=== PATIENT | male | born 1945 | race Caucasian/White ===

== ENCOUNTER 2016-07-18 07:56 | Inpatient (IN) | payer MEDICARE, OTHER ==
[2016-07-18] VITALS (34 sets, daily range): BP systolic 107–147; BP diastolic 48–113; PULSE 51–67; RESP 12–23; Ht 172.7 cm; Wt 84.0 kg
[~2016-07-18] VITALS: Ht 172.7 cm; Wt 84.0 kg
[~2016-07-18 07:56] MED LIST: EZET10TA3 PO; FOR CHOLESTEROL; GEMF600T60 PO; RANI300T PO; TAMS0.4C2 PO; [UNRECOGNIZED DRUG - OTHER]; [UNRECOGNIZED DRUG - REMARK]
[2016-07-18] MEDS ORDERED: SOD CHLORIDE 0.9% 1,000 ML IV STA (08:21)
[2016-07-18 08:49] LABS: ADD SCAN DIFF NO
[2016-07-18 08:53] LABS: BASOPHIL # 0.1 10^3/ul (0.0-0.1); BASOPHILS % 0.6 % (0.0-2.0); EOSINOPHILS # 0.3 10^3/ul (0.0-0.5); EOSINOPHILS % 3.8 % (0.0-7.0); HEMATOCRIT 41.9 % (42.0-52.0); HEMOGLOBIN 14.3 g/dl (14.0-18.0); LYMPHOCYTES # 1.7 10^3/ul (0.8-2.9); LYMPHOCYTES % 18.6 % (15.0-51.0); MEAN CORPUSCULAR HEMOGLOBIN 31.8 pg (29.0-33.0); MEAN CORPUSCULAR HGB CONC 34.1 g/dl (32.0-37.0); MEAN CORPUSCULAR VOLUME 93.3 fl (82.0-101.0); MEAN PLATELET VOLUME 10.1 fl (7.4-10.4); MONOCYTE # 0.7 10^3/ul (0.3-0.9); MONOCYTES % 7.9 % (0.0-11.0); NEUTROPHIL # 6.2 10^3/ul (1.6-7.5); NEUTROPHILS % 68.7 % (39.0-77.0); PLATELET COUNT 174 10^3/UL (140-415); RED BLOOD COUNT 4.49 10^6/ul (4.70-6.10); RED CELL DISTRIBUTION WIDTH 12.8 % (11.5-14.5)
[2016-07-18] MEDS ORDERED: OMEP20CA16 PO (09:12)
[2016-07-18 09:24] LABS: ALBUMIN 4.1 g/dl (3.3-4.9); CHLORIDE 106 mmol/L (97-110); SODIUM 143 mmol/L (135-144)
[2016-07-18 09:26] LABS: BILIRUBIN,INDIRECT 0.3 mg/dl (0-1.1); BILIRUBIN,TOTAL 0.3 mg/dl (0.2-1.3); CREATININE 1.15 mg/dl (0.61-1.24)
[2016-07-18 09:27] LABS: ALANINE AMINOTRANSFERASE 31 IU/L (13-69); ALBUMIN/GLOBULIN RATIO 1.36; ALKALINE PHOSPHATASE 65 IU/L (42-121); ANION GAP 17 (8-16); ASPARTATE AMINO TRANSFERASE 18 IU/L (15-46); BLOOD UREA NITROGEN 22 mg/dl (7-20); CALCIUM 9.5 mg/dl (8.4-10.2); CARBON DIOXIDE 24 mmol/L (21-31); GLUCOSE 106 mg/dl (70-220); TOTAL PROTEIN 7.1 g/dl (6.1-8.1)
[2016-07-18] MEDS ORDERED: MEMA28CA PO (09:37)
--- NOTE | 2016-07-18 09:37 | RADRPT ---
PROCEDURE: CT Abdomen and Pelvis without contrast. CLINICAL INDICATION: Abdominal and back pain. TECHNIQUE: CT scan of the abdomen and pelvis without contrast was performed on a multidetector hig h-resolution CT scanner. The patient was scanned without intravenous contrast. Coronal and sagittal reformatted images were obtained from the axial source images. Images were reviewed on a high-resol [employer] PACS workstation. The total exam CTDI equals 15.0 mGy and the total exam DLP equals 1000.16 mG y-cm. One or more of the following dose reduction techniques were used: Automated exposure control. Adjustment of the mA and/or kV according to patient size. Use of iterative reconstruction technique. COMPARISON: None FINDINGS: CT abdomen: The lung bases are remarkable for mild bibasilar atelectasis. The heart size is normal, without per icardial thickening or effusion. Distal descending thoracic aorta measures up to 3.4 cm, upper limit s of normal range. The liver is normal in size and density without focal mass or intrahepatic bilia ry dilatation. The spleen is normal in size and homogeneous in density. The stomach is partially c ollapsed, but is grossly unremarkable. The pancreas as visualized is normal. The gallbladder is re markable for multiple calcified large gallstones. There is no evidence for biliary dilatation. The adrenal glands are symmetric and normal. The kidneys are symmetrically unremarkable as well. No re nal calculus or obstructive uropathy or mass lesion is seen. There are multiple small bilateral diego l cortical cysts measures up to 2 cm in the lower pole right kidney. There are several sub centimet er hypodensities in both kidneys, too small to further characterize. There are a few sub centimeter hyperdense round structures of both kidneys, likely representing a proteinaceous/hemorrha gic cyst. There is mild aneurysmal dilatation of the infrarenal abdominal aorta measures up to 3.4 cm. There is mild aneurysmal dilatation of the right common iliac artery measures up to 2.2 cm. Scattered aor toiliac atherosclerotic plaques are present. There is no retroperitoneal lymphadenopathy. The abi hepatis region is clear. The bowel and mesentery, as visualized, are equally unremarkable. There i s a fat-containing small periumbilical hernia. There is mild angel colonic diverticulosis more evident in the sigmoid without evidence of acute diverticulitis. CT pelvis: The small bowel loops situated within the pelvis are unremarkable. There is mild prostatomegaly wit h median lobe hypertrophy. The pelvic sidewalls and inguinal regions are clear. The sigmoid colon a nd rectum are remarkable for sigmoid diverticulosis. No mass, lymphadenopathy, or free fluid is see n. No acute inflammation is seen. The surrounding osseous structures are remarkable for degenerati ve spondylosis of the spine. No osteolytic or osteoblastic lesion is detected. IMPRESSION: 1. Mild aneurysmal dilatation of the infrarenal abdominal aorta measures up to 3.4 cm. No evidence of retroperitoneal hemorrhage to suggest rupture. 2. 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 3. Angel colonic diverticulosis more evident in the sigmoid without evidence of acute diverticulitis. 4. Cholelithiasis without evidence of acute cholecystitis. 5. Multiple bilateral renal cysts. A few sub centimeter hyperdense structures in bilateral kidneys , likely representing a hemorrhagic/proteinaceous cyst. Several sub centimeter bilateral renal hy podensities, too small to further characterize but statistically more likely additional cysts. 6. Normal appendix. 7. Mild prostatomegaly with median lobe hypertrophy. RPTAT: AAEE .Gypsy Miller MD, MD Date Time Electronically viewed and signed by .Gypsy Miller MD, on 07/18/2016 09:37 .O/
[2016-07-18 09:41] LABS: TROPONIN-I < 0.012 ng/ml (0.00-0.12)
[2016-07-18] MEDS ORDERED: SOD CHLORIDE 0.9% 100 ML ONE (10:13)
[2016-07-18] MEDS ORDERED: IOHEXOL 100 ML ONE ×2 (10:13→10:54)
--- NOTE | 2016-07-18 10:22 | ERA ---
ER Documentation Chief Complaint Date/Time DATE: 07/18/16 TIME: 10:15 Chief Complaint left shoulder pain,left flank pain, rad to the chest HPI 71-year-old man brought in by EMS from home for sudden onset severe left parathoracic back pain beginning this morning and waking him up from sleep. He denies previous episodes of this type of pain, the pain was sharp, severe, nonradiating and nonexertional. Patient denied chest pain or shortness of breath, no dysuria or hematuria, no vomiting or diarrhea. Patient was transported here by EMS and states upon ED arrival the pain resolved spontaneously. ROS All systems reviewed and are negative except as per history of present illness. Medications Home Meds Reported Medications Memantine* (Namenda* XR) 28 Mg Cap.spr.24, 28 MG PO DAILY, #30 TAB 07/18/16 Discontinued Reported Medications Omeprazole* (Omeprazole*) 20 Mg Capsule.dr, 20 MG PO DAILY, #30 07/18/16 Ezetimibe* (Zetia*) 10 Mg Tablet, 1 TAB PO DAILY, #30 03/21/15 Gemfibrozil* (Gemfibrozil*) 600 Mg Tablet, 1 TAB PO DAILY, #30 03/21/15 Ranitidine Hcl* (Ranitidine Hcl*) 300 Mg Tablet, 1 TAB PO DAILY, #30 03/21/15 Tamsulosin Hcl* (Tamsulosin Hcl*) 0.4 Mg Cap.er.24h, 1 CAP PO BID, #60 03/21/15 [For Urination] No Conflict Check 11/24/10 [For Stomach] No Conflict Check 11/24/10 [For Cholesterol] No Conflict Check 11/24/10 Allergies Allergies: Uncoded Allergies: ANTIBIOTICS THAT ENDS WITH CILLINS (Allergy, Mild, ITCHING AND SWELLING, 11/24/10) PMhx/Soc Tobacco smoker, cholelithiasis, gastritis, BPH, hypercholesterolemia History of Surgery: Yes (KNEE SX 20 YRS AGO) Anesthesia Reaction: No Hx Neurological Disorder: No Hx Respiratory Disorders: No Hx Cardiac Disorders: No Hx Psychiatric Problems: No Hx Miscellaneous Medical Probl: Yes (kidney stones, gallstones) Hx Substance Use: No Hx Tobacco Use: Yes Smoking Status: Never smoker FmHx No history of early coronary artery disease or sudden cardiac . Family History: No diabetes Physical Exam Vitals Vital Signs Date Time Temp Pulse Resp B/P Pulse Ox O2 Delivery O2 Flow Rate FiO2 07/18/16 11:29 56 18 137/76 99 Room Air 07/18/16 10:02 58 20 142/85 99 Room Air 07/18/16 08:11 98.1 59 20 144/93 99 Physical Exam GENERAL: Well-developed, well-nourished, well-hydrated, in no apparent distress , looks nontoxic in appearance HEENT: Moist mucous membranes, pink conjunctiva, no cervical spine tenderness or step-off deformities, no goiter, no jaundice or icterus, extraocular movements intact without pain. No submandibular induration, and no pharyngeal erythema NEURO: Alert and oriented 3, cranial nerves II through XII intact bilaterally, pupils equal round reactive to light, no focal deficits or facial asymmetry, sensation intact distally Strength 5/5 in upper and lower extremities bilaterally CARDIAC: Bradycardic and regular, no murmurs rubs or gallops LUNGS: Clear bilaterally no wheezing crackles or stridor ABDOMEN: Soft nontender, no guarding, no rigidity, no rebound, no psoas sign no obturator sign. Normoactive bowel sounds SKIN: Warm and dry to touch, no abrasions, contusions, or hematomas, no lacerations, no ecchymosis, no target lesions, and without ulcers EXTREMITIES: No clubbing cyanosis or edema, calves are bilaterally symmetrical, no Homans sign, no popliteal cord sign. Distal pulses equal and bilateral PSYCH: Normal affect without agitation or irritability Result Diagram: 07/18/16 0800 07/18/16 0800 Results 24 hrs Laboratory Tests Test 07/18/16 08:00 07/18/16 10:21 07/18/16 10:30 White Blood Count 9.010^3/ul Red Blood Count 4.4910^6/ul Hemoglobin 14.3g/dl Hematocrit 41.9% Mean Corpuscular Volume 93.3fl Mean Corpuscular Hemoglobin 31.8pg Mean Corpuscular Hemoglobin Concent 34.1g/dl Red Cell Distribution Width 12.8% Platelet Count 76136^3/UL Mean Platelet Volume 10.1fl Neutrophils % 68.7% Lymphocytes % 18.6% Monocytes % 7.9% Eosinophils % 3.8% Basophils % 0.6% Nucleated Red Blood Cells % 0.0/100WBC Neutrophils # 6.210^3/ul Lymphocytes # 1.710^3/ul Monocytes # 0.710^3/ul Eosinophils # 0.310^3/ul Basophils # 0.110^3/ul Nucleated Red Blood Cells # 0.010^3/ul Sodium Level 143mmol/L Potassium Level 4.0mmol/L Chloride Level 106mmol/L Carbon Dioxide Level 24mmol/L Anion Gap 17 Blood Urea Nitrogen 22mg/dl Creatinine 1.15mg/dl Glucose Level 106mg/dl Calcium Level 9.5mg/dl Total Bilirubin 0.3mg/dl Direct Bilirubin 0.00mg/dl Indirect Bilirubin 0.3mg/dl Aspartate Amino Transf (AST/SGOT) 18IU/L Alanine Aminotransferase (ALT/SGPT) 31IU/L Alkaline Phosphatase 65IU/L Troponin I < 0.012ng/ml Total Protein 7.1g/dl Albumin 4.1g/dl Globulin 3.00g/dl Albumin/Globulin Ratio 1.36 Lipase 84U/L Prothrombin Time 12.7Sec Prothrombin Time Ratio 1.0 INR International Normalized Ratio 0.95 Urine Color LT. YELLOW Urine Clarity CLEAR Urine pH 6.0 Urine Specific Kimball 1.025 Urine Ketones NEGATIVE Urine Nitrite NEGATIVE Urine Bilirubin NEGATIVE Urine Urobilinogen 0.2 E.U./dL Urine Leukocyte Esterase NEGATIVE Urine Hemoglobin NEGATIVE Urine Glucose NEGATIVE% Urine Total Protein NEGATIVE Current Medications Medications (Trade) Dose Ordered Sig/Louisa Route PRN Reason Start Time Stop Time Status Last Admin Dose Admin Sodium Chloride 1,000 ml @ 1,000 mls/hr Q1H STAT IV 07/18/16 08:21 07/18/16 09:20 DC 07/18/16 08:36 Sodium Chloride (NS) 1,000 ml @ 1,000 mls/hr Q1H ONCE IV 07/18/16 10:30 07/18/16 11:29 DC 07/18/16 11:27 IV Flush 10 ml 10 ml STK-MED ONCE .ROUTE 07/18/16 10:13 07/18/16 10:14 DC 07/18/16 11:11 Sodium Chloride 100 ml @ ud STK-MED ONCE .ROUTE 07/18/16 10:13 07/18/16 10:14 DC 07/18/16 11:11 Iohexol 100 ml @ ud STK-MED ONCE .ROUTE 07/18/16 10:13 07/18/16 10:14 DC 07/18/16 11:12 Iohexol (Omnipaque) 100 ml @ ud STK-MED ONCE .ROUTE 07/18/16 10:54 07/18/16 10:55 DC 07/18/16 11:12 Procedures/MDM IV line was established patient was placed on teletypesetter monitor rhythm strip revealed a bradycardia at about 60 bpm with upright P and T waves. Patient was afebrile. EKG performed, read by me revealed a sinus bradycardia 57 bpm, left axis deviation, low amplitude, and a right ventricular conduction delay with a QRS duration of 114 ms, no concerning ST elevations or depressions noted. I administered 2 L normal saline intravenously. At this point patient was pain- free so analgesics were deferred. Immediate CAT scan of the abdomen and pelvis without contrast was performed revealing a descending aortic aneurysm, which is consistent with the patient's symptoms and presentation. Please refer to radiologist dictation for full report. Immediate cardiovascular surgery consultation was obtained, I spoke to Dr. Zarco regarding the patient's presentation and symptomatology he recommended inpatient management and agreed to consult the patient. He also recommended stat CT of the chest abdomen pelvis with IV contrast. CBC was unremarkable, electrolytes revealed dehydration with a BUN/creatinine of 22/1.2, liver function tests are normal, troponin was negative. Coagulation profile was normal with an INR of 1, urine analysis was negative. EKG #2 performed about 3 hours after the first 1, read by me reveals a sinus bradycardia 54 bpm, left axis deviation, low amplitude, with a right ventricular conduction delay and a QRS duration of 106 ms, no concerning ST elevations or depressions noted. Unchanged. CT scan of the chest, abdomen, pelvis with IV contrast was performed revealing aneurysmal dilatation of the distal thoracic aortic arch and proximal descending aorta measuring 3.8 cm with shallow aortic ulcerations. There is also a 3.5 cm infrarenal abdominal aortic aneurysm with circumferential intramural thrombus. Please refer to radiologist dictation for full report. Cardiac critical Care: Time: 34 minutes, this was time separate from other procedures. Treatments/Evaluations: Close monitoring and treatment of blood pressure, cardiorespiratory, and neurologic status, while maintaining tight balance of fluid, respiratory, and cardiac interventions. Patient will be admitted to the intensive care unit for continued medical management and cardiothoracic consultation. Departure Diagnosis: Primary Impression: Thoracic aortic aneurysm Qualified Code: I71.2 - Thoracic aortic aneurysm without rupture Additional Impression: Aneurysm of infrarenal abdominal aorta Condition: SCOTT Perales MD July 18, 2016 10:22
[2016-07-18] MEDS ORDERED: SOD CHLORIDE 0.9% 1,000 ML IV ONE (10:30)
[2016-07-18 11:14] LABS: ADD UMIC NO; URINE BILIRUBIN (Dip) NEGATIVE (NEGATIVE); URINE BLOOD (Dip) NEGATIVE (NEGATIVE); URINE COLOR LT. YELLOW (YELLOW); URINE GLUCOSE (Dip) NEGATIVE (NEGATIVE); URINE KETONES (Dip) NEGATIVE (NEGATIVE); URINE LEUKOCYTE ESTERASE (Dip) NEGATIVE (NEGATIVE); URINE NITRITE (Dip) NEGATIVE (NEGATIVE); URINE TOTAL PROTEIN (Dip) NEGATIVE (NEGATIVE); URINE UROBILINOGEN (Dip) 0.2 E.U./dL (0.1-1.0)
[2016-07-18 11:18] LABS: INR 0.95; PROTIME 12.7 Sec (12.2-14.2)
--- NOTE | 2016-07-18 11:28 | RADRPT ---
PROCEDURE: CTA Chest, Abdomen and Pelvis with contrast. CLINICAL INDICATION: Chest and back pain. Evaluate for aortic aneurysm. TECHNIQUE: The study was performed utilizing a multi-slice multidetector CT scanner. Direct spiral 1 mm axial sections were obtained from the thoracic inlet to the pelvis with the use of 100 cc of O mnipaque 350 nonionic intravenous contrast material and reformatted at 3 mm. Coronal MIP reformation s were obtained. The images were reviewed on a PACS workstation. The CTDIvol is 4.69, 21.13, and 14. 03 mGy and the DLP is 1105.08 mGycm. One or more of the following dose reduction techniques were used: Automated exposure control. Adjustment of the mA and/or kV according to patient size. Use of iterative reconstruction technique. COMPARISON: CT abdomen and pelvis without contrast 07/18/2016. FINDINGS: Vascular: The aortic root, and ascending aorta are normal in caliber with no significant atherosclerotic moscoso es. There is mild aneurysmal dilatation of the distal thoracic arch and proximal descending aorta m easures up to 3.8 cm. Significant fibrofatty plaque and shallow aortic ulcerations are seen in the proximal descending aorta. The origins of the innominate and left common carotid arteries are widel y patent with no significant plaque. There is irregular fibrofatty plaque at the origin of the left subclavian artery with no hemodynamically significant stenosis. There is no aortic dissection. There is infrarenal abdominal aortic aneurysm measures up to 3.5 cm with circumferential intramural thrombus. There is no significant luminal narrowing at the level of the thrombus. Celiac artery, S MA, and left renal arteries are widely patent with no significant ostial stenosis. There is a fibro fatty plaque at the juxtarenal abdominal aorta at the level of the right renal artery origin with pr obable moderate ostial stenosis. There is mild aneurysmal dilatation of the right common iliac artery measures up to 2.2 cm. There i s normal caliber left common iliac artery with shallow ulcerated plaques and possibly non-flow limit ing dissection flap. There is significant narrowing of the left internal iliac artery origin. Main pulmonary arteries are patent with no pulmonary emboli. CT chest: The lungs are clear. There is approximately 1 cm nodule with central punctate calcification in the c entral left upper lobe on image 3-34. There is 8 mm subpleural nodule in the right lung apex. Smal ler subpleural nodules are seen in the left lung apex likely reflecting nodular scarring. There is mild bibasilar atelectasis. No focal opacification, effusion, pneumothorax, edema, or nodules are s een. There is no acute infiltrate. The mediastinum is unremarkable without evidence for mass or lymphadenopathy. The heart size is no rmal without evidence for pericardial thickening or effusion. The axillary regions, subpectoral hugo ons, and supraclavicular regions are all unremarkable. CT abdomen: The liver is normal in size and density without focal mass or intrahepatic biliary dilatation. The spleen is normal in size and homogeneous in density. The stomach is partially collapsed, but is matthew ssly unremarkable. The pancreas as visualized is normal. The gallbladder is remarkable for multipl e calcified gallstones. there is no evidence for biliary dilatation. The adrenal glands are symmetr ic and normal. The kidneys are symmetrically unremarkable as well. There are bilateral renal cysts measures up to 2 cm in the lower pole right kidney. No suspicious renal mass is identified. The aorta is of normal caliber. Aortic vascular calcifications are present. There is no retroperit dave lymphadenopathy. The abi hepatis region is clear. The bowel and mesentery, as visualized, are equally unremarkable. There is angel colonic diverticulosis more evident in the sigmoid without ev idence of acute diverticulitis. There is a small fat containing periumbilical hernia. CT pelvis: The small bowel loops situated within the pelvis are unremarkable. There is mild prostatomegaly. T here is normal appendix. The pelvic sidewalls and inguinal regions are clear. The sigmoid colon an d rectum are all unremarkable. No mass, lymphadenopathy, or free fluid is seen. No acute inflammat ion is seen. The surrounding osseous structures are remarkable for degenerative spondylosis of the spine. No ost eolytic or osteoblastic lesion is detected. IMPRESSION: Vascular: 1. Mild aneurysmal dilatation of the distal thoracic arch and descending aorta measures up to 3.8 c m. Intramural thrombus/shallow aortic ulcerations in the distal arch and descending aorta. No evid ence of aortic dissection. 2. Aortic root/ascending aorta are normal in caliber. 3. Infrarenal abdominal aortic aneurysm measures up to 3.5 cm circumferential intramural thrombus. No evidence of aortic dissection. No luminal narrowing at the level of the intramural thrombus. 4. Patent mesenteric arteries and left renal artery. 5. Probable moderate stenosis at the origin of the right renal artery. 6. 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 7. Normal caliber left common iliac artery with probable non-flow limiting dissection / shallow pen etrating ulcers. 8. No major pulmonary emboli. Chest: 1. No mass, lymphadenopathy or acute infiltrates. 2. Approximately 1 cm nodule in the left upper lobe centrally likely reflecting hamartoma versus gr anuloma. 3. A few subpleural nodule in the lung apices likely reflecting nodular scarring. Abdomen and pelvis: 1. Angel colonic diverticulosis more evident in the sigmoid without evidence of acute diverticulitis. 2. Cholelithiasis without evidence of acute cholecystitis. 3. Multiple bilateral renal cysts. No suspicious renal lesion. 4. Normal appendix. 5. Mild prostatomegaly. RPTAT: AAEE .Gypsy Miller MD, MD Date Time Electronically viewed and signed by .Gypsy Miller MD, MD on 07/18/2016 11:28 .O/
[2016-07-18] MEDS ORDERED: ENALAPRILAT 1.25 MG INJ IV ONE (12:30)
[2016-07-18] MEDS: niCARdipine-D5W 0.1MG/ML DRIP 200 ML IV SCH ×2 (13:25→20:54)
--- NOTE | 2016-07-18 14:12 | HP ---
Date/Time of Note Date/Time of Note DATE: 07/18/16 TIME: 13:57 Assessment/Plan VTE Prophylaxis VTE Prophylaxis Intervention: SCD's Assessment/Plan Assessment/Plan 71 yo M managed for 1. Infrarenal abdominal aorta measures up to 3.4 cm with sudden onset of back pain which may or may not be related 2. 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 3. Tobacco user PLAN: * In the absence of overt rupture, patients with AAA who are thought to be symptomatic or who have possible signs of impending rupture should be admitted for observation and further evaluation. If the patient is a candidate, repair should be accomplished during the same hospitalization, hence will admit to ICU for improved BP control. * Goal sytolic 120 or less, diastolic 80 or less * Vascular surgery and cardio consults * r/o ACS / 2D echo * Smoking Cessation Therapy: Pt. was lectured for greater than 3 minutes on the health risks of continued smoking and the benefits of cessation and this will continue to be reinforced throughout hospitalization. * Supportive care Prop: SCDs HPI/ROS Admit Date/Time Admit Date/Time 07/18/16 Hx of Present Illness 71-year-old man brought in by EMS from home for sudden onset severe left parathoracic back pain beginning this morning and waking him up from sleep. He denies previous episodes of this type of pain, the pain was sharp, severe, nonradiating and nonexertional. Patient denied chest pain or shortness of breath, no dysuria or hematuria, no vomiting or diarrhea. Patient was transported here by EMS and states upon ED arrival the pain resolved spontaneously. ROS 12 point review if systems was done and pertinent findings are as noted. PMH/Family/Social Past Medical History * bph * kidney stones Past Surgical History * L knee surgery Family History Significant Family History: no pertinent family hx Social History Alcohol Use: occasionally Smoking Status: Current every day smoker Drug Use: none Exam/Review of Systems Vital Signs Vitals VS - Last 72 Hours, by Label Date Time Temp Pulse Resp B/P Pulse Ox O2 Delivery O2 Flow Rate FiO2 07/18/16 13:10 49 19 159/76 94 Nasal Cannula 2.0 07/18/16 12:27 57 18 141/78 99 Room Air 07/18/16 12:15 55 20 155/89 99 Room Air 07/18/16 11:29 56 18 137/76 99 Room Air 07/18/16 10:02 58 20 142/85 99 Room Air 07/18/16 08:11 98.1 59 20 144/93 99 Vital Signs Date Time Temp Pulse Resp B/P Pulse Ox O2 Delivery O2 Flow Rate FiO2 07/18/16 13:10 49 19 159/76 94 Nasal Cannula 2.0 07/18/16 08:11 98.1 Exam Exam GENERAL: Patient is alert, oriented x 3, in no apparent distress; does not appear acutely or chronically ill. Patient is able to sit up unassisted.Patient makes good eye contact, is conversant, interactive, coherent. Patient appears calm and comfortable and is able to follow commands. HEENT: Oropharynx is clear. There is no carotid bruit, no masses. Patient's pupils are equal, round and reactive to light bilaterally. Extraocular motions are intact. There is no scleral icterus. There is no facial asymmetry. NECK: Supple. LUNGS: Clear to auscultation bilaterally with good air entry. No Wheezes or crackles. HEART: S1, S2. No murmur, gallops or rubs. Regular rate and rhythm. ABDOMEN: Soft, nontender. Normoactive bowel sounds. There are no stigmata of chronic liver disease. BACK: no costovertebral angle tenderness. GENITOURINARY: Deferred. EXTREMITIES: No edema. There is no cyanosis, clubbing. There are 2+ pulses bilaterally distally. NEUROLOGIC: The patient has no lateralizing signs. Cranial nerves II-XII are intact. SKIN: Otherwise, unremarkable. Labs Result Diagram: 07/18/16 0800 07/18/16 0800 Medications Medications Current Medications Nicardipine HCl (Cardene Iv) 200 ml @ 50 mls/hr TITRATE IV Last administered on 07/18/16t 13:25; Admin Dose 50 MLS/HR; Start 07/18/16 at 13:30 Procedures Procedures PROCEDURE: CT Abdomen and Pelvis without contrast. CLINICAL INDICATION: Abdominal and back pain. TECHNIQUE: CT scan of the abdomen and pelvis without contrast was performed on a multidetector high-resolution CT scanner. The patient was scanned without intravenous contrast. Coronal and sagittal reformatted images were obtained from the axial source images. Images were reviewed on a high-resolution PACS workstation. The total exam CTDI equals 15.0 mGy and the total exam DLP equals 1000.16 mGy-cm. One or more of the following dose reduction techniques were used: Automated exposure control. Adjustment of the mA and/or kV according to patient size. Use of iterative reconstruction technique. COMPARISON: None FINDINGS: CT abdomen: The lung bases are remarkable for mild bibasilar atelectasis. The heart size is normal, without pericardial thickening or effusion. Distal descending thoracic aorta measures up to 3.4 cm, upper limits of normal range. The liver is normal in size and density without focal mass or intrahepatic biliary dilatation. The spleen is normal in size and homogeneous in density. The stomach is partially collapsed, but is grossly unremarkable. The pancreas as visualized is normal. The gallbladder is remarkable for multiple calcified large gallstones. There is no evidence for biliary dilatation. The adrenal glands are symmetric and normal. The kidneys are symmetrically unremarkable as well. No renal calculus or obstructive uropathy or mass lesion is seen. There are multiple small bilateral renal cortical cysts measures up to 2 cm in the lower pole right kidney. There are several sub centimeter hypodensities in both kidneys, too small to further characterize. There are a few sub centimeter hyperdense round structures of both kidneys, likely representing a proteinaceous/hemorrhagic cyst. There is mild aneurysmal dilatation of the infrarenal abdominal aorta measures up to 3.4 cm. There is mild aneurysmal dilatation of the right common iliac artery measures up to 2.2 cm. Scattered aortoiliac atherosclerotic plaques are present. There is no retroperitoneal lymphadenopathy. The abi hepatis region is clear. The bowel and mesentery, as visualized, are equally unremarkable. There is a fat-containing small periumbilical hernia. There is mild angel colonic diverticulosis more evident in the sigmoid without evidence of acute diverticulitis. CT pelvis: The small bowel loops situated within the pelvis are unremarkable. There is mild prostatomegaly with median lobe hypertrophy. The pelvic sidewalls and inguinal regions are clear. The sigmoid colon and rectum are remarkable for sigmoid diverticulosis. No mass, lymphadenopathy, or free fluid is seen. No acute inflammation is seen. The surrounding osseous structures are remarkable for degenerative spondylosis of the spine. No osteolytic or osteoblastic lesion is detected. IMPRESSION: 1. Mild aneurysmal dilatation of the infrarenal abdominal aorta measures up to 3.4 cm. No evidence of retroperitoneal hemorrhage to suggest rupture. 2. 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 3. Angel colonic diverticulosis more evident in the sigmoid without evidence of acute diverticulitis. 4. Cholelithiasis without evidence of acute cholecystitis. 5. Multiple bilateral renal cysts. A few sub centimeter hyperdense structures in bilateral kidneys, likely representing a hemorrhagic/proteinaceous cyst. Several sub centimeter bilateral renal hypodensities, too small to further characterize but statistically more likely additional cysts. 6. Normal appendix. 7. Mild prostatomegaly with median lobe hypertrophy. RPTAT: AAEE .Gypsy Miller MD MD Date Time Electronically viewed and signed by .Gypsy Miller MD, MD on 07/18/2016 09:37 .O/ CC: SCOTT BARAHONA MD PROCEDURE: CTA Chest, Abdomen and Pelvis with contrast. CLINICAL INDICATION: Chest and back pain. Evaluate for aortic aneurysm. TECHNIQUE: The study was performed utilizing a multi-slice multidetector CT scanner. Direct spiral 1 mm axial sections were obtained from the thoracic inlet to the pelvis with the use of 100 cc of Omnipaque 350 nonionic intravenous contrast material and reformatted at 3 mm. Coronal MIP reformations were obtained. The images were reviewed on a PACS workstation. The CTDIvol is 4.69, 21.13, and 14.03 mGy and the DLP is 1105.08 mGycm. One or more of the following dose reduction techniques were used: Automated exposure control. Adjustment of the mA and/or kV according to patient size. Use of iterative reconstruction technique. COMPARISON: CT abdomen and pelvis without contrast 07/18/2016. FINDINGS: Vascular: The aortic root, and ascending aorta are normal in caliber with no significant atherosclerotic changes. There is mild aneurysmal dilatation of the distal thoracic arch and proximal descending aorta measures up to 3.8 cm. Significant fibrofatty plaque and shallow aortic ulcerations are seen in the proximal descending aorta. The origins of the innominate and left common carotid arteries are widely patent with no significant plaque. There is irregular fibrofatty plaque at the origin of the left subclavian artery with no hemodynamically significant stenosis. There is no aortic dissection. There is infrarenal abdominal aortic aneurysm measures up to 3.5 cm with circumferential intramural thrombus. There is no significant luminal narrowing at the level of the thrombus. Celiac artery, SMA, and left renal arteries are widely patent with no significant ostial stenosis. There is a fibrofatty plaque at the juxtarenal abdominal aorta at the level of the right renal artery origin with probable moderate ostial stenosis. There is mild aneurysmal dilatation of the right common iliac artery measures up to 2.2 cm. There is normal caliber left common iliac artery with shallow ulcerated plaques and possibly non-flow limiting dissection flap. There is significant narrowing of the left internal iliac artery origin. Main pulmonary arteries are patent with no pulmonary emboli. CT chest: The lungs are clear. There is approximately 1 cm nodule with central punctate calcification in the central left upper lobe on image 3-34. There is 8 mm subpleural nodule in the right lung apex. Smaller subpleural nodules are seen in the left lung apex likely reflecting nodular scarring. There is mild bibasilar atelectasis. No focal opacification, effusion, pneumothorax, edema, or nodules are seen. There is no acute infiltrate. The mediastinum is unremarkable without evidence for mass or lymphadenopathy. The heart size is normal without evidence for pericardial thickening or effusion. The axillary regions, subpectoral regions, and supraclavicular regions are all unremarkable. CT abdomen: The liver is normal in size and density without focal mass or intrahepatic biliary dilatation. The spleen is normal in size and homogeneous in density. The stomach is partially collapsed, but is grossly unremarkable. The pancreas as visualized is normal. The gallbladder is remarkable for multiple calcified gallstones. there is no evidence for biliary dilatation. The adrenal glands are symmetric and normal. The kidneys are symmetrically unremarkable as well. There are bilateral renal cysts measures up to 2 cm in the lower pole right kidney. No suspicious renal mass is identified. The aorta is of normal caliber. Aortic vascular calcifications are present. There is no retroperitoneal lymphadenopathy. The abi hepatis region is clear. The bowel and mesentery, as visualized, are equally unremarkable. There is angel colonic diverticulosis more evident in the sigmoid without evidence of acute diverticulitis. There is a small fat containing periumbilical hernia. CT pelvis: The small bowel loops situated within the pelvis are unremarkable. There is mild prostatomegaly. There is normal appendix. The pelvic sidewalls and inguinal regions are clear. The sigmoid colon and rectum are all unremarkable. No mass, lymphadenopathy, or free fluid is seen. No acute inflammation is seen. The surrounding osseous structures are remarkable for degenerative spondylosis of the spine. No osteolytic or osteoblastic lesion is detected. IMPRESSION: Vascular: 1. Mild aneurysmal dilatation of the distal thoracic arch and descending aorta measures up to 3.8 cm. Intramural thrombus/shallow aortic ulcerations in the distal arch and descending aorta. No evidence of aortic dissection. 2. Aortic root/ascending aorta are normal in caliber. 3. Infrarenal abdominal aortic aneurysm measures up to 3.5 cm circumferential intramural thrombus. No evidence of aortic dissection. No luminal narrowing at the level of the intramural thrombus. 4. Patent mesenteric arteries and left renal artery. 5. Probable moderate stenosis at the origin of the right renal artery. 6. 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 7. Normal caliber left common iliac artery with probable non-flow limiting dissection / shallow penetrating ulcers. 8. No major pulmonary emboli. Chest: 1. No mass, lymphadenopathy or acute infiltrates. 2. Approximately 1 cm nodule in the left upper lobe centrally likely reflecting hamartoma versus granuloma. 3. A few subpleural nodule in the lung apices likely reflecting nodular scarring. Abdomen and pelvis: 1. Angel colonic diverticulosis more evident in the sigmoid without evidence of acute diverticulitis. 2. Cholelithiasis without evidence of acute cholecystitis. 3. Multiple bilateral renal cysts. No suspicious renal lesion. 4. Normal appendix. 5. Mild prostatomegaly. RPTAT: AAEE .Gypsy Miller MD, MD Date Time Electronically viewed and signed by .Gypsy Miller MD, on 07/18/2016 11:28 ROCAEL DUARTE July 18, 2016 14:07
[2016-07-18 15:08] LABS: CREATINE KINASE 58 IU/L (23-200)
[2016-07-18 15:21] LABS: TROPONIN-I < 0.012 ng/ml (0.00-0.12)
[2016-07-18 15:26] LABS: BARBITURATES NEG (NEGATIVE)
[2016-07-18 15:27] LABS: BENZODIAZEPINES NEG (NEGATIVE); CANNABINOIDS NEG (NEGATIVE); COCAINE NEG (NEGATIVE); OPIATES NEG (NEGATIVE)
--- NOTE | 2016-07-18 18:41 | CONS ---
DATE OF ADMISSION: 07/18/2016 DATE OF CONSULTATION: 07/18/2016 TYPE OF CONSULTATION: Cardiology. REASON FOR CONSULTATION: Aortic aneurysm. CHIEF COMPLAINT: Back pain. HISTORY OF PRESENT ILLNESS: Thank you for this referral. History obtained from the patient, hernandez cooley with the physicians, and review of the chart. This is a pleasant 71-year-old [place] gentlema n with history of smoking who presented with above chief complaint. The patient states that he has had back pain and shows his lower back. Pain has been going on for some time. It is getting worse now. Could not explain ____. Denies any chest pain to me. Denies any palpitations to me. As work up, he has had a CT of abdomen and pelvis as well as CT of the chest, which has shown small aneurysm al dilatation of distal thoracic aorta and descending aorta measuring up to 3.8 cm. There was intra mural thrombus/shadow aortic ulceration in the distal arch and descending aorta noted, but no eviden ce of aortic dissection. The patient has been admitted to ICU on Cardene drip. PAST MEDICAL HISTORY: History of smoking. Otherwise, he denied all other. SOCIAL HISTORY: Smokes every day. Denies any alcohol, drug abuse. Has quit alcohol about 25 years ago. FAMILY HISTORY: Denies any history of coronary artery disease. ALLERGIES: TO PROBABLY PENICILLINS. MEDICATIONS AT HOME: Memantine. REVIEW OF SYSTEMS: All other except for above-mentioned. PHYSICAL EXAMINATION: VITAL SIGNS: Temperature 98.1, heart rate of 56, blood pressure 135/68, respiratory rate of 17. HEENT: Normocephalic, atraumatic. Pupils are equal. CARDIOVASCULAR: Regular rate and rhythm. Systolic murmur. PULMONARY: No wheezes, no rhonchi. GASTROINTESTINAL: Soft, nontender. EXTREMITIES: No cyanosis. NEUROLOGIC: Awake, alert x3. PSYCHIATRIC: Calm, pleasant. LABORATORY: WBC of 9, hemoglobin 14.3, platelets of 174. Sodium 143, potassium 4, BUN of 22, creat inine of 1.15, glucose of 106. Troponin less than 0.[address] of the chest shows mild aneurysmal dilatation at the distal aortic arch and descending aorta up to 3.8 cm. Intraluminal thrombus, shad ow of aortic ulceration in distal arch and descending aorta noted. No evidence of aortic dissection . Aortic root and ascending aorta are normal in caliber. Infrarenal abdominal aortic aneurysm fadia uring 3.5 cm noted. Probably moderate stenosis of the origin of the right renal artery. Mild aneur ysmal dilatation of the right common iliac artery up to 2.2 cm. EKG shows sinus bradycardia, loc septal infarct, age undetermined. ASSESSMENT AND PLAN: 1. Dilated aortic arch, intraluminal thrombus per CT report. 2. Hypertension, mild, under control. 3. ____ dyslipidemia. 4. Abnormal EKG. RECOMMENDATIONS: The patient will be placed in the ICU on a Cardizem drip. I will start him on car vedilol and adjust it as needed. Thyroid function tests will be checked. CT surgery consultation h as been requested. Thank you for this referral. We will continue to follow. Dictated By: PATRICK LIN MD AV/TOBY Conf#: [id number] DID#: [id number] CC: ROCAEL DUARTE MD;*EndCC*
--- NOTE | 2016-07-18 20:00 | CONS ---
DATE OF ADMISSION: 07/18/2016 DATE OF CONSULTATION: REASON FOR CONSULTATION: Evaluation for abdominal aortic aneurysm. Thank you, Dr. Perez, for asking me to see this patient. HISTORY OF PRESENT ILLNESS: This is a 71-year-old male with a history of obesity, smoking, admitted because of back pain, had a CAT scan of the chest which showed mild dilatation of the descending th oracic aorta 3.8 cm, also infrarenal aneurysm 3.5 cm. No evidence of any rupture or dissection. Th ere was also aneurysmal dilatation of the right common iliac artery 2.2 cm. The patient's pain has subsided at the present time. PAST MEDICAL HISTORY: Hypertension, hyperlipidemia, benign prostatic hypertrophy, kidney stones. PAST SURGICAL HISTORY: Left knee surgery. MEDICATION LIST: Includes Vasotec. SOCIAL HISTORY: Positive for smoking. REVIEW OF SYSTEMS: No upper or lower GI bleeding, nausea, vomiting, constipation, diarrhea. No hem aturia, dysuria. No skin changes, rashes, moles. No chest pain, palpitation. PHYSICAL EXAMINATION: VITAL SIGNS: Blood pressure is 126/61, pulse is 54, respirations 18, saturations 99% on 2 L of oxyg en. CARDIOVASCULAR: Normal S1, S2. No murmurs, gallops or rubs. LUNGS: Clear. ABDOMEN: Soft. EXTREMITIES: Warm. LABORATORY VALUES: Hemoglobin 14.3, white count 9, platelet count 174. Normal coagulation factors and a creatinine of 1.15. IMPRESSION: 1. Abdominal aortic aneurysm 3.5 cm. 2. Descending thoracic aneurysm 3.8 cm. No signs of rupture or leak at the present time. No plan for surgery. Would continue blood pressure monitoring. Would follow up in my office for fu rther management. ____ ultrasound discussed with the patient and the referring physicians, discusse d with the family including the . All questions answered. Dictated By: VIVEK RUEDA/TOBY Conf#: [id number] DID#: [id number]
[2016-07-18 20:53] LABS: CREATINE KINASE 46 IU/L (23-200)
[2016-07-18 21:05] LABS: CK-MB 0.63 ng/ml (0.0-2.4)
[2016-07-18 21:15] LABS: TROPONIN-I < 0.012 ng/ml (0.00-0.12)
[2016-07-19] VITALS (18 sets, daily range): BP systolic 99–154; BP diastolic 47–81; PULSE 50–63; RESP 14–22
[2016-07-19 07:06] LABS: ADD SCAN DIFF NO
[2016-07-19 07:16] LABS: BASOPHILS % 0.3 % (0.0-2.0); EOSINOPHILS # 0.4 10^3/ul (0.0-0.5); EOSINOPHILS % 3.8 % (0.0-7.0); HEMATOCRIT 41.3 % (42.0-52.0); HEMOGLOBIN 13.8 g/dl (14.0-18.0); LYMPHOCYTES # 1.6 10^3/ul (0.8-2.9); LYMPHOCYTES % 15.8 % (15.0-51.0); MEAN CORPUSCULAR HEMOGLOBIN 31.2 pg (29.0-33.0); MEAN CORPUSCULAR HGB CONC 33.4 g/dl (32.0-37.0); MEAN CORPUSCULAR VOLUME 93.4 fl (82.0-101.0); MEAN PLATELET VOLUME 10.3 fl (7.4-10.4); MONOCYTE # 0.6 10^3/ul (0.3-0.9); MONOCYTES % 6.5 % (0.0-11.0); NEUTROPHIL # 7.2 10^3/ul (1.6-7.5); NEUTROPHILS % 73.3 % (39.0-77.0); PLATELET COUNT 172 10^3/UL (140-415); RED BLOOD COUNT 4.42 10^6/ul (4.70-6.10); RED CELL DISTRIBUTION WIDTH 12.9 % (11.5-14.5); WHITE BLOOD COUNT 9.8 10^3/ul (4.8-10.8)
[2016-07-19 07:31] LABS: ALBUMIN 3.8 g/dl (3.3-4.9); ALBUMIN/GLOBULIN RATIO 1.4; BILIRUBIN,INDIRECT 0.4 mg/dl (0-1.1); BILIRUBIN,TOTAL 0.4 mg/dl (0.2-1.3); CALCIUM 8.9 mg/dl (8.4-10.2); CHOL/HDL RATIO 10.1 RATIO; CREATININE 1.01 mg/dl (0.61-1.24); POTASSIUM 4.3 mmol/L (3.5-5.1); TOTAL PROTEIN 6.5 g/dl (6.1-8.1)
[2016-07-19] MEDS ORDERED: LISINOPRIL 10 MG TAB PO SCH (09:00)
[2016-07-19] MEDS ORDERED: CARV3.1260 PO (09:14)
[2016-07-19] MEDS ORDERED: ATOR20TA65 PO (09:14)
[2016-07-19] MEDS ORDERED: LISI10TA2 PO (09:14)
--- NOTE | 2016-07-19 11:36 | PN ---
DATE: 07/19/2016 SUBJECTIVE: The patient was , had to go back on overnight. No chest pain or pressure, n ew back pain has improved, wants to go home. He wanted to sign out AMA last night, but his con vinced him to stay. MEDICATIONS: Reviewed. PHYSICAL EXAMINATION: VITAL SIGNS: Temperature 98.6, heart rate of 54, blood pressure 137/78, respiratory rate of 14, sat urating 94%. HEENT: Normocephalic, atraumatic. No acute distress. Pupils are equal. CARDIOVASCULAR: Regular rate and rhythm. PULMONARY: No wheezes heard. GASTROINTESTINAL: Soft, nontender. EXTREMITIES: No edema. NEUROLOGIC: Awake and alert. PSYCHIATRIC: Calm and very pleasant. LABORATORY: WBC of 9.8, hemoglobin 13.8, platelet of 172. Sodium 137, potassium 4.3, BUN of 19, cr eatinine 1.01, glucose 106. Cholesterol 214, LDL 125, HDL 21, triglycerides 341. Free T4 0.94. Her echocardiogram was personally reviewed, showed no significant aortic insufficiency noted, normal LV function. ASSESSMENT AND PLAN: 1. Dilated aortic root. 2. Hypertension. 3. Dyslipidemia. 4. History of smoking. 5. Evidence of intraluminal thrombus per CT report. RECOMMENDATIONS: Follow up with CT surgery recommendation. I have added lisinopril to his regimen to control blood pressure. I have also added statin to his regimen. The patient was advised to fol low up with me as an outpatient. Dictated By: PATRICK LIN MD AV/TOBY Conf#: [id number] DID#: [id number] CC: ROCAEL DUARTE MD;*EndCC*
[2016-07-19 12:09] LABS: MAGNESIUM 1.7 mg/dl (1.7-2.5)
[2016-07-19 12:40] LABS: THYROID STIMULATING HORMONE 0.968 MIU/L (0.465-4.680)
--- NOTE | 2016-07-19 13:46 | DS ---
DATE OF ADMISSION: 07/18/2016 DATE OF DISCHARGE: 07/19/2016 FINAL DIAGNOSES: A 71-year-old male with: 1. Infrarenal abdominal aortic aneurysm measuring 3.4 cm with associated sudden onset of back pain which may or may not have been related 2. Mild aneurysmal dilatation of the right common iliac artery measuring up to 2.2 cm. 3. Chronic tobacco use. 4. Hypertension with good control. 5. Dyslipidemia. CONSULTS ON THE CASE: Dr. oJnnathan Zarco, as well as Dr. Kahlil Castillo. INTERVENTIONS: The patient was monitored in the intensive care unit and at one point was on the vlad ardipine drip for optimal blood pressure control, in view of his aneurysm. He also had the followin g imaging studies: 1. A CT of the abdomen and pelvis without contrast. 2. CT of the chest, abdomen and pelvis with contrast. Final findings are the followin. Mild aneurysmal dilatation of the distal thoracic arch and descending aorta measuring 3.8 cm, 2. Intraluminal thrombus/shallow aortic ulceration in the distal arch and descending aorta without evidence of aortic dissection. 3. Infrarenal abdominal aortic aneurysm measuring 3.5 cm circumferential intramural thrombus withou t evidence of dissection or luminal narrowing. 4. Probable moderate stenosis at the origin of the right renal artery. 5. Mild aneurysmal dilatation of the right common iliac artery measuring 2.2 cm. 6. No major pulmonary emboli. 6. A few ____pulmonary nodules in the lung apices likely reflective of scarring. 7. One cm nodule in the left upper lobe, likely secondary to granuloma. 8. Aranda colonic diverticulosis without evidence of diverticulitis. 9. Cholelithiasis without evidence of cholecystitis. 10. Bilateral renal cysts without obstruction or suspicious renal lesion. 11. Prostatomegaly, mild. 12. Chronic dementia, mild. 13. Chronic tobacco use. HOSPITAL COURSE: Full details are available in the chart for review. In summary, Mr. Hensley is a 71-year-old male, a chronic smoker with no significant history ____and intermittent high blood pres sure who came to the emergency room yesterday because of his ____onset of low back pain. The pain w as said to be general, more on the left side of the back and has never had similar pain before. Th e patient was said to be quite severe and now resolving, and so he came to the emergency room. Adan toshia, at the time of arrival, the patient's pain had improved significantly. A CT of the abdomen and pelvis had shown the concerning findings summarized above and this was discussed with the cardiothor acic surgeon electronic induction hardener, who recommended the patient be admitted and get a CT of the chest, abdomen and pelvis with IV contrast for further evaluation and to assess what kind of intervention was needed. This was done and the findings were reviewed with both the industrial engineering professor as well as the cardiothorac ic surgeon. After review and evaluation, Dr. Zarco recommended that the patient be discharged to home on appropriate antihypertensive therapy to follow up with him for close monitoring as an out patient. The patient also was requesting discharge almost as soon as he was admitted. This ____ wa s quite acceptable for him. Dr. Castillo, however, saw the patient and also put and his recommendatio n. A 2D echo was done which was also reviewed by Dr. Castillo, and it showed no significant aortic in sufficiency with normal left ventricular function. Dr. Castilol started the patient on Coreg, lisinop ril, and Lipitor and his nicardipine drip was discontinued. The patient had good response to this r egimen. DISCHARGE: Stable. ACTIVITY: As tolerated. FOLLOWUP: With Dr. Zarco in his office for further management. DISCHARGE MEDICATIONS: 1. Lipitor 20 mg p.o. at bedtime. 2. Coreg 3.125 b.i.d. 3. Lisinopril 10 mg daily. 4. The patient is to continue his home Namenda XR 28 mg p.o. daily. COUNSELING: The patient was counseled extensively on the need to quit tobacco use. He had shown me that he gayathri t drinking alcohol for 25 years abruptly without any side effects and he was very confident that he could quit using tobacco without assistance without any side effects. He verbalizes understanding ab out the risks and willingness to try, ____ We also discussed his dyslipidemia and the need to maintain a low-cholesterol, low fat diet. The p atient also agrees to try to conform to this. Overall, evaluation today so far has been more than 4 5 minutes. For clarification and further information, please review the patient's chart and my orde rs. DISCHARGE: The patient will be discharged after being cleared by both cardiothoracic surgery and ca rdiology. Dictated By: ROCAEL DUARTE MD BA/TOBY Conf#: [id number] DID#: [id number]
--- NOTE | 2016-07-19 14:40 | RADRPT ---
Echocardiogram Report Patient Name: BRADLEY CAGE Gender: Male Date: 1945 Study Date: 19-Jul-2016 Power Plant Supervisor: Sunday Pereira RDCS Location: 108 Ref. Physician: PATRICK CASTILLO Quality: Good Procedures: Transthoracic echocardiogram with complete 2D, M-Mode, and doppler examination. Indications: Chest Pain. 2D/M Mode Doppler Measurement Value Normal Ranges Measurement Value Normal Ranges LVIDd 2D 5.0 3.5 - 5.6 cm AV Peak Jace 1.4 m/sec LVIDs 2D 2.5 2.1 - 4.1 cm AV Peak PG 8.4 mmHg LVPWd 2D 1.0 0.6 - 1.1 cm LVOT Peak Jace 1.0 m/sec IVSd 2D 0.9 0.6 - 1.1 cm LVOT Peak PG 4.2 mmHg AoR Diam 2D 2.7 2.0 - 3.7 cm MV E Peak Jace 0.6 m/sec EDV 2D 119.4 cm3 MV A Peak Jace 0.7 m/sec ESV 2D 15.5 cm3 MV E/A 0.9 LA Dimen 2D 3.2 2.3 - 4.0 cm MV Decel Time 221 msec MV Decel Lanier 3 MV E/A 0.9 TR Peak Jace 2.5 m/sec TR Peak PG 24.5 mmHg RVSP 28.0 mmHg Findings Left Ventricle: Normal left ventricular systolic function. Normal left ventricular cavity size. Mild concentric left ventricular hypertrophy. Ejection fraction is visually estimated at 60 %. Tissue Doppler/Mitral Doppler indices are consistent with impaired relaxation (Stage I diastolic dysfunction). Right Ventricle: Normal right ventricular size. Normal right ventricular systolic function. Left Atrium: The left atrium is normal in size. Right Atrium: The right atrium is normal in size. Mitral Valve: Mitral valve leaflets appear mildly thickened. Mild mitral annular calcification. Trace mitral regurgitation. Aortic Valve: No significant aortic stenosis or insufficiency. Aortic cusps appear mildly calcified. Trileaflet aortic valve. No aortic regurgitation. Tricuspid Valve: Normal appearance of the tricuspid valve. Estimated peak PA systolic pressure 28 mmHg. There is trace tricuspid regurgitation. Pulmonic Valve: Pulmonic valve not well visualized. Pericardium: Normal pericardium with no significant pericardial effusion. Aorta: Normal aortic root. IVC: Normal size and normal respiratory collapse consistent with normal right atrial pressure. Conclusions 1.Normal left ventricular systolic function. Normal left ventricular cavity size. Mild concentric left ventricular hypertrophy. Ejection fraction is visually estimated at 60 %. Tissue Doppler/Mitral Doppler indices are consistent with impaired relaxation (Stage I diastolic dysfunction). 2.Mitral valve leaflets appear mildly thickened. Mild mitral annular calcification. Trace mitral regurgitation. 3.No significant aortic stenosis or insufficiency. Aortic cusps appear mildly calcified. Trileaflet aortic valve. No aortic regurgitation. 4.Normal appearance of the tricuspid valve. Estimated peak PA systolic pressure 28 mmHg. There is trace tricuspid regurgitation. 5.Normal aortic root. Electronically Signed By: Patrick Castillo 19-Jul-2016 14:39:42 -0700 Patient Name: BRADLEY CAGE Study Date: 19-Jul-2016 [id number]
[2016-07-19] MEDS ORDERED: ATORVASTATIN 20 MG TAB PO SCH (21:00)
== END 2016-07-19 12:15 | disposition home or self-care (01) | DRG 552 ==
LOC: E/R 07:56 → ICU 14:45
PROVIDERS: ADMIT Family Medicine; ATTEND Family Medicine
DX: M54.9 Dorsalgia, unspecified (principal); I74.09 Other arterial embolism and thrombosis of abdominal aorta; I71.2 Thoracic aortic aneurysm, without rupture; I71.4 Abdominal aortic aneurysm, without rupture; I72.3 Aneurysm of iliac artery; Z72.0 Tobacco use; I10 Essential (primary) hypertension; E78.5 Hyperlipidemia, unspecified
CPT/HCPCS: 36415; 71275; 74176; 75635; 80053; 80061; 80307; 81003; 82550; 82553; 83690; 83735; 84439; 84443; 84484; 85025; 85610; 86850; 86900; 86901; 86920; 87081; 93005; 93306; 96374; 96375; J7030; Q9967

== ENCOUNTER 2016-11-16 00:07 | Emergency (ER) | payer MEDICARE, OTHER ==
[~2016-11-16] VITALS: Ht 160 cm; Wt 89.0 kg
[~2016-11-16 00:07] MED LIST changes: +ATOR20TA65 PO; +CARV3.1260 PO; -EZET10TA3 PO; -FOR CHOLESTEROL; -GEMF600T60 PO; +LISI10TA2 PO; +MEMA28CA PO; -RANI300T PO; -TAMS0.4C2 PO; -[UNRECOGNIZED DRUG - OTHER]; -[UNRECOGNIZED DRUG - REMARK]
[2016-11-16 00:20] VITALS: Ht 160 cm; Wt 89.0 kg
[2016-11-16] MEDS ORDERED: ONDANSETRON 4 MG INJ IV STA (00:30)
[2016-11-16] MEDS ORDERED: morphine 4 MG/ML VIAL IV STA (00:30)
[2016-11-16 00:56] LABS: BASOPHIL # 0.1 10^3/ul (0.0-0.1); BASOPHILS % 0.7 % (0.0-2.0); EOSINOPHILS # 0.3 10^3/ul (0.0-0.5); EOSINOPHILS % 4.5 % (0.0-7.0); HEMATOCRIT 35.7 % (42.0-52.0); LYMPHOCYTES # 1.8 10^3/ul (0.8-2.9); LYMPHOCYTES % 24.3 % (15.0-51.0); MEAN CORPUSCULAR HEMOGLOBIN 31.7 pg (29.0-33.0); MEAN CORPUSCULAR HGB CONC 33.6 g/dl (32.0-37.0); MEAN CORPUSCULAR VOLUME 94.2 fl (82.0-101.0); MEAN PLATELET VOLUME 10.1 fl (7.4-10.4); MONOCYTE # 0.6 10^3/ul (0.3-0.9); MONOCYTES % 8.1 % (0.0-11.0); NEUTROPHILS % 62.1 % (39.0-77.0); PLATELET COUNT 149 10^3/UL (140-415); RED BLOOD COUNT 3.79 10^6/ul (4.70-6.10); RED CELL DISTRIBUTION WIDTH 12.8 % (11.5-14.5); WHITE BLOOD COUNT 7.5 10^3/ul (4.8-10.8)
[2016-11-16 01:12] LABS: ALANINE AMINOTRANSFERASE 24 IU/L (13-69); ALBUMIN/GLOBULIN RATIO 1.21; ALKALINE PHOSPHATASE 83 IU/L (42-121); ANION GAP 20 (8-16); ASPARTATE AMINO TRANSFERASE 17 IU/L (15-46); BILIRUBIN,INDIRECT 0.1 mg/dl (0-1.1); BILIRUBIN,TOTAL 0.1 mg/dl (0.2-1.3); BLOOD UREA NITROGEN 33 mg/dl (7-20); CALCIUM 9.4 mg/dl (8.4-10.2); CARBON DIOXIDE 21 mmol/L (21-31); CHLORIDE 106 mmol/L (97-110); CREATININE 1.44 mg/dl (0.61-1.24); GLUCOSE 124 mg/dl (70-220); POTASSIUM 4.6 mmol/L (3.5-5.1); SODIUM 142 mmol/L (135-144); TOTAL PROTEIN 7.3 g/dl (6.1-8.1)
[2016-11-16 01:24] LABS: B-TYPE NATRIURETIC PEPTIDE 74 PG/ML (0-125)
[2016-11-16 01:26] LABS: TROPONIN-I < 0.012 ng/ml (0.00-0.12)
--- NOTE | 2016-11-16 01:38 | RADRPT ---
PROCEDURE: XR Chest. CLINICAL INDICATION: Chest Pain. TECHNIQUE: Single frontal view of the chest. COMPARISON: 07/18/2016 CTA chest. FINDINGS: The cardiomediastinal silhouette is within normal limits. Tortuous thoracic aorta. The lungs are cl ear. No signs of pleural fluid or pneumothorax are seen. The osseous structures and soft tissues are unremarkable. IMPRESSION: No evidence for active cardiopulmonary disease. RPTAT: [facility] Physician Melanie Date Time Electronically viewed and signed by Jovana Perez Physician on 11/16/2016 01:38 RS/
[2016-11-16] MEDS ORDERED: ASPI-664 PO (02:12)
[2016-11-16] MEDS ORDERED: IOHEXOL 100 ML ONE (02:20)
[2016-11-16] MEDS ORDERED: SOD CHLORIDE 0.9% 100 ML ONE (02:20)
--- NOTE | 2016-11-16 03:12 | RADRPT ---
PROCEDURE: CT Chest, Abdomen and Pelvis with contrast. CLINICAL INDICATION: Chest pain. Concern for aortic dissection. TECHNIQUE: Contrast enhanced CT examination of the chest, abdomen and pelvis, with axial, sagittal and coronal reformatted images. The total exam CTDI equals 48.17 mGy and the total exam DLP equals 1179.22 mGy-cm. COMPARISON: 07/18/2016. FINDINGS: CT chest: Mild atelectasis at the bilateral lung bases. Evaluation of lung parenchyma is limited secondary to respiratory motion. The lungs otherwise clear. Otherwise, there is no evident focal opacification, effusion, pneumothorax, edema, or nodules are seen. There is no acute infiltrate. The central trac heobronchial tree is clear. The mediastinum is unremarkable without evidence for mass or lymphadenopathy. The vascular structur es of the mediastinum are normal in course and caliber. No evident aneurysm, dissection or leak with in the thoracic aorta. Mural thrombus is seen in the thoracic aorta. Aortic vascular calcification s, and no coronary artery calcifications are present. These findings are similar in appearance to th e prior examination. The heart size is mildly enlarged, without evidence for pericardial thickening or effusion. The axillary regions, subpectoral regions, and supraclavicular regions are all unremar kable. The surrounding chest wall is unremarkable. CT abdomen: The liver is normal in size and density without focal mass or intrahepatic biliary dilatation. The spleen is normal in size and homogeneous in density. The stomach is partially collapsed, but is matthew ssly unremarkable. The pancreas as visualized is normal. The gallstones; and the biliary tree is u nremarkable and there is no evidence for biliary dilatation. The adrenal glands are symmetric and n ormal. 2 cm exophytic cyst at the right kidney. The bilateral kidneys contain multiple smaller cys ts. Otherwise, the kidneys are symmetrically unremarkable as well. No renal calculus or obstructiv e uropathy or mass lesion is seen. Mild ectasia of the distal abdominal aorta measuring up to 32 mm. No aneurysm, dissection or leak in the abdominal aorta. Mural thrombus is seen in the abdominal aorta. Aortic vascular calcification s are present. These findings are without significant frame changer the interval. There is no retroper itoneal lymphadenopathy. The abi hepatis region is clear. The bowel and mesentery, as visualized , are equally unremarkable. CT pelvis: Aneurysmal dilatation of the 2 cm diameter right common iliac artery. Small region of dissection in the 13 mm diameter left common iliac artery. These findings are similar in appearance to prior exam ination. The small bowel loops situated within the pelvis are unremarkable. The pelvic organs are normal. T he pelvic sidewalls and inguinal regions are clear. The sigmoid colon and rectum are all unremarkab le. No mass, lymphadenopathy, or free fluid is seen. No acute inflammation is seen. The appendix i s unremarkable. The surrounding osseous structures are remarkable for degenerative spondylosis of the spine. No ost eolytic or osteoblastic lesion is detected. IMPRESSION: 1. Atherosclerotic calcifications and mural thrombus in the thoracic aorta, without evident aneurys m, dissection or leak. 2. Mild ectasia of the distal abdominal aorta measuring up to about 32 mm, and otherwise mild calci fications and mural thrombus in the abdominal aorta. 3. No evident aneurysm, dissection or leak in the abdominal aorta. 4. Annual dilatation of the 2 cm diameter right common iliac artery. 5. Small region of dissection is likely present in the 13 mm diameter left common iliac artery. 6. Gallstones. 7. Small cysts in the bilateral kidneys measure up to 2 cm in the right kidney. 8. Otherwise, no evident acute process in the chest, abdomen or pelvis. RPTAT: [facility] Physician Melanie Date Time Electronically viewed and signed by Physician Melanie on 11/16/2016 03:12 RS/
[2016-11-16 04:42] VITALS: BP 137/70; PULSE 54; RESP 16; TEMP 98.9
--- NOTE | 2016-11-16 04:46 | ERD ---
ER Documentation Chief Complaint Date/Time DATE: 11/16/16 TIME: 04:45 Chief Complaint BIBA RA39,CP radiating to back,hx aneurysm HPI 71-year-old male comes in with chest pain rating to his back started an hour ago. Picked up by paramedics. Pain resolved after 20 minutes. Patient is pain -free at this time. Patient does have history of aneurysm. Patient has followed up schedule appointment tomorrow with his vascular surgeon ROS All systems reviewed and are negative except as per history of present illness. Medications Home Meds Active Scripts Lisinopril* (Lisinopril*) 10 Mg Tablet, 10 MG PO DAILY for 30 Days, TAB 2 Refills Prov[facility] 07/19/16 Carvedilol* (Carvedilol*) 3.125 Mg Tablet, 3.125 MG PO BID for 30 Days, TAB 2 Refills Prov:FELICIA,[facility]. 07/19/16 Atorvastatin Calcium (Atorvastatin Calcium) 20 Mg Tablet, 20 MG PO HS for 30 Days, TAB 2 Refills Prov:[facility]. 07/19/16 Reported Medications Aspirin (Aspirin) 81 Mg Tablet.dr, 81 MG PO 11/16/16 Memantine* (Namenda* XR) 28 Mg Cap.spr.24, 28 MG PO DAILY, #30 TAB 07/18/16 Allergies Allergies: Uncoded Allergies: ANTIBIOTICS THAT ENDS WITH CILLINS (Allergy, Severe, ITCHING AND SWELLING, 11/16/16) PMhx/Soc History of Surgery: No Anesthesia Reaction: No Hx Neurological Disorder: No Hx Respiratory Disorders: No Hx Cardiac Disorders: Yes (CARDIAC HISTORY, HTN, HYPERLIPIDEMIA) Hx Psychiatric Problems: No Hx Miscellaneous Medical Probl: Yes (ANEURYSM NO REPAIR) Hx Alcohol Use: No Hx Substance Use: No Hx Tobacco Use: Yes Smoking Status: Former smoker Physical Exam Vitals Vital Signs Date Time Temp Pulse Resp B/P Pulse Ox O2 Delivery O2 Flow Rate FiO2 11/16/16 03:18 55 16 120/66 95 Room Air 11/16/16 00:20 99.5 58 18 130/65 95 Physical Exam Const: [] Head: Atraumatic Eyes: Normal Conjunctiva ENT: Normal External Ears, Nose and Mouth. Neck: Full range of motion..~ No meningismus. Resp: Clear to auscultation bilaterally Cardio: Regular rate and rhythm, no murmurs Abd: Soft, non tender, non distended. Normal bowel sounds Skin: No petechiae or rashes Back: No midline or flank tenderness Ext: No cyanosis, or edema Neur: Awake and alert Psych: Normal Mood and Affect Result Diagram: 11/16/163411/16/1634 Results 24 hrs Laboratory Tests Test 11/16/16 00:35 White Blood Count 7.510^3/ul Red Blood Count 3.7910^6/ul Hemoglobin 12.0g/dl Hematocrit 35.7% Mean Corpuscular Volume 94.2fl Mean Corpuscular Hemoglobin 31.7pg Mean Corpuscular Hemoglobin Concent 33.6g/dl Red Cell Distribution Width 12.8% Platelet Count 89960^3/UL Mean Platelet Volume 10.1fl Neutrophils % 62.1% Lymphocytes % 24.3% Monocytes % 8.1% Eosinophils % 4.5% Basophils % 0.7% Nucleated Red Blood Cells % 0.0/100WBC Neutrophils # (Manual) 4.710^3/ul Lymphocytes # 1.810^3/ul Monocytes # 0.610^3/ul Eosinophils # 0.310^3/ul Basophils # 0.110^3/ul Nucleated Red Blood Cells # 0.010^3/ul Sodium Level 142mmol/L Potassium Level 4.6mmol/L Chloride Level 106mmol/L Carbon Dioxide Level 21mmol/L Anion Gap 20 Blood Urea Nitrogen 33mg/dl Creatinine 1.44mg/dl Glucose Level 124mg/dl Calcium Level 9.4mg/dl Total Bilirubin 0.1mg/dl Direct Bilirubin 0.00mg/dl Indirect Bilirubin 0.1mg/dl Aspartate Amino Transf (AST/SGOT) 17IU/L Alanine Aminotransferase (ALT/SGPT) 24IU/L Alkaline Phosphatase 83IU/L Troponin I < 0.012ng/ml B-Type Natriuretic Peptide 74PG/ML Total Protein 7.3g/dl Albumin 4.0g/dl Globulin 3.30g/dl Albumin/Globulin Ratio 1.21 Current Medications Medications (Trade) Dose Ordered Sig/Louisa Route PRN Reason Start Time Stop Time Status Last Admin Dose Admin Morphine Sulfate (morphine) 4 mg ONCE STAT IV 11/16/16 00:30 11/16/16 00:31 DC Ondansetron HCl (Zofran Inj) 4 mg ONCE STAT IV 11/16/16 00:30 11/16/16 00:31 DC IV Flush 10 ml 10 ml STK-MED ONCE .ROUTE 11/16/16 02:20 11/16/16 02:21 DC 11/16/16 02:24 Sodium Chloride 100 ml @ ud STK-MED ONCE .ROUTE 11/16/16 02:20 11/16/16 02:21 DC 11/16/16 02:25 Iohexol (Omnipaque) 100 ml @ ud STK-MED ONCE .ROUTE 11/16/16 02:20 11/16/16 02:21 DC 11/16/16 02:25 Procedures/MDM EKG: Rate/Rhythm: Normal Sinus Rhythm QRS, ST, T-waves: No changes consistent w/ acute ischemia Impression: No evidence of ischemia or arrhythmia Chest X-ray 1V Interpreted by me: Soft Tissue: No acute abnormalities Bones: No acute abnormalities Mediastinum/Cardiac Silhouette/Lungs: No acute abnormalities Patient's thoracic symptoms have stabilized while in the department and are stable for outpatient follow up. Exam and work up not consistent w/ ischemia, arrhythmia, PE or dissection. Patient CT scan shows no change in his aneurysmal load. Patient is to follow- up. Copies of CT and lab were given to patient to follow. Departure Diagnosis: Primary Impression: Chest pain Chest pain type: unspecified Qualified Code: R07.9 - Chest pain, unspecified type Condition: Stable Patient Instructions: Chest Pain, Uncertain Cause NAVJOT GOODSON Nov 16, 2016 04:46
--- NOTE | 2016-11-16 08:48 | HP ---
Date/Time of Note Date/Time of Note DATE: 11/16/16 TIME: 08:45 Assessment/Plan VTE Prophylaxis VTE Prophylaxis Intervention: SCD's Lines/Catheters IV Catheter Type (from Nrs): Saline Lock Assessment/Plan Assessment/Plan 1. Chest pain, rule out ACS -Trend troponin -Supplemental oxygen, beta-ester, statin, as needed nitro morphine -Cardiology consult 2. Probable left common iliac artery dissection -Cardio thoracic or vascular surgery consult, 3. Infrarenal AAA, intramural thrombus -BP control and statin -Periodic follow-up with imaging - -Cardio thoracic or vascular surgery consult, initially to comments on blood thinner 4. History of descending aorta aneurysm -See #3 5. Acute kidney injury -IV fluid -Nephrology consult HPI/ROS Admit Date/Time Admit Date/Time Hx of Present Illness This is a 71-year-old male with history of hypertension, dyslipidemia, AAA who presented to the emergency department complaining of chest pain. Pain is centered in the mid chest and also slightly left-sided with radiation to his upper back. Also reported initially having had shortness of breath. Denied nausea/vomiting or diaphoresis. When presented to the ER, CT abdomen pelvis shows the following mural thrombus in the thoracic aorta, distal abdominal aorta measuring up to about 32 mm, dilatation of the 2 cm diameter right common iliac artery, small region of dissection is likely present in the 13 mm diameter left common iliac artery and gallstones. Initial vitals showed BP of 130/65, heart rate 58 and a temp of 99.5. Lab shows a hemoglobin of 12 and creatinine 1.44. First troponin is negative and EKG was no ST-T wave abnormalities. Patient was admitted here a few months ago where he was found to have infrarenal AAA measuring 3.5 cm, intra-mural thrombus and mild descending aorta aneurysm measuring 3.8 cm. At that time he was evaluated by thoracic surgeon and a cardiology. PMH/Family/Social Past Medical History Medical History: GERD, high cholesterol, hypertension Social History Alcohol Use: none Smoking Status: Former smoker Drug Use: none Exam/Review of Systems Vital Signs Vitals Vital Signs Date Time Temp Pulse Resp B/P Pulse Ox O2 Delivery O2 Flow Rate FiO2 11/16/16 04:42 98.9 54 16 137/70 95 Room Air Exam Constitutional: alert, oriented, well developed Head: atraumatic, normocephalic Eyes: PERRL Respiratory: clear to auscultation, normal air movement Cardiovascular: nl pulses, regular rate and rhythm Gastrointestinal: non-tender, soft Extremities: normal pulses Labs Result Diagram: 11/16/16 0035 11/16/16 0035 NAVJOT WILLIAMSON MD Nov 16, 2016 08:48
[2016-11-16] MEDS ORDERED: NITROGLYCERIN (SL) 0.4 MG TAB SL PRN (09:30)
[2016-11-16] MEDS ORDERED: MEMANTINE 28 MG XX SCH (09:30)
[2016-11-16] MEDS ORDERED: ALBUTEROL/IPRATROPIUM (NEB) 3 ML AMP HHN PRN (09:30)
[2016-11-16] MEDS ORDERED: ACETAMINOPHEN 325 MG TAB PO PRN (09:30)
[2016-11-16] MEDS ORDERED: morphine 2 MG INJ IV PRN (09:30)
[2016-11-16] MEDS ORDERED: NACL 0.9% 3 ML SYG IV SCH (09:30)
[2016-11-16] MEDS ORDERED: ONDANSETRON 4 MG INJ IV PRN (09:30)
--- NOTE | 2016-11-16 15:36 | DS ---
Date/Time of Note Date/Time of Note DATE: 11/16/16 TIME: 15:34 Discharge Summary Admission/Discharge Info Admit Date/Time Discharge Date/Time Discharge Diagnosis Meeting diagnosis 1. Chest pain, rule out ACS. 2. 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 Infrarenal AAA, intramural thrombus 4. History of descending aorta aneurysm 5. Acute kidney injury Hx of Present Illness This is a 71-year-old male with history of hypertension, dyslipidemia, AAA who presented to the emergency department complaining of chest pain. Pain is centered in the mid chest and also slightly left-sided with radiation to his upper back. Also reported initially having had shortness of breath. Denied nausea/vomiting or diaphoresis. When presented to the ER, CT abdomen pelvis shows the following mural thrombus in the thoracic aorta, distal abdominal aorta measuring up to about 32 mm, dilatation of the 2 cm diameter right common iliac artery, small region of dissection is likely present in the 13 mm diameter left common iliac artery and gallstones. Initial vitals showed BP of 130/65, heart rate 58 and a temp of 99.5. Lab shows a hemoglobin of 12 and creatinine 1.44. First troponin is negative and EKG was no ST-T wave abnormalities. Patient was admitted here a few months ago where he was found to have infrarenal AAA measuring 3.5 cm, intra-mural thrombus and mild descending aorta aneurysm measuring 3.8 cm. At that time he was evaluated by thoracic surgeon and a cardiology. Hospital Course As the plan was to admit patient to rule out ACS as patient came in with chest pain. His initial troponin was negative. Patient also required to be seen by cardiology and cardiothoracic surgery in regards to left common iliac artery dissection possibility as well as infrarenal aortic aneurysm with intramural thrombus. However, patient left AMA without being evaluated by myself or consultants. Despite our efforts, patient had decided to leave AGAINST MEDICAL ADVICE. Patient has normal mental status and full decisional capacity. He understood her condition and the risk of leaving AMA, including but not limited to permanent disability, etc., and he had an opportunity to ask questions about her medical condition. The patient has been informed that she may return for care anytime and has been referred to her primary care provider for follow- up as soon as possible. This patient left AMA, no discharge planning was done. No prescription was given. Discussed with Dr. Adrian. Home Meds Active Scripts Lisinopril* (Lisinopril*) 10 Mg Tablet, 10 MG PO DAILY for 30 Days, TAB 2 Refills Prov:ROCAEL DUARTE. 07/19/16 Carvedilol* (Carvedilol*) 3.125 Mg Tablet, 3.125 MG PO BID for 30 Days, TAB 2 Refills Prov:ROCAEL DUARTE. 07/19/16 Atorvastatin Calcium (Atorvastatin Calcium) 20 Mg Tablet, 20 MG PO HS for 30 Days, TAB 2 Refills Prov:ROCAEL DUARTE. 07/19/16 Reported Medications Aspirin (Aspirin) 81 Mg Tablet.dr, 81 MG PO 11/16/16 Memantine* (Namenda* XR) 28 Mg Cap.spr.24, 28 MG PO DAILY, #30 TAB 07/18/16 Primary Care Provider Michael Hough Pending Labs Laboratory Tests Test 11/16/16 00:35 White Blood Count 7.510^3/ul (4.8-10.8) Red Blood Count 3.7910^6/ul (4.70-6.10) Hemoglobin 12.0g/dl (14.0-18.0) Hematocrit 35.7% (42.0-52.0) Mean Corpuscular Volume 94.2fl (82.0-101.0) Mean Corpuscular Hemoglobin 31.7pg (29.0-33.0) Mean Corpuscular Hemoglobin Concent 33.6g/dl (32.0-37.0) Red Cell Distribution Width 12.8% (11.5-14.5) Platelet Count 32060^3/UL (140-415) Mean Platelet Volume 10.1fl (7.4-10.4) Neutrophils % 62.1% (39.0-77.0) Lymphocytes % 24.3% (15.0-51.0) Monocytes % 8.1% (0.0-11.0) Eosinophils % 4.5% (0.0-7.0) Basophils % 0.7% (0.0-2.0) Nucleated Red Blood Cells % 0.0/100WBC (0.0-0.0) Neutrophils # (Manual) 4.710^3/ul (1.7-7.5) Lymphocytes # 1.810^3/ul (0.8-2.9) Monocytes # 0.610^3/ul (0.3-0.9) Eosinophils # 0.310^3/ul (0.0-0.5) Basophils # 0.110^3/ul (0.0-0.1) Nucleated Red Blood Cells # 0.010^3/ul (0.0-0.0) Sodium Level 142mmol/L (135-144) Potassium Level 4.6mmol/L (3.5-5.1) Chloride Level 106mmol/L (97-110) Carbon Dioxide Level 21mmol/L (21-31) Anion Gap 20 (8-16) Blood Urea Nitrogen 33mg/dl (7-20) Creatinine 1.44mg/dl (0.61-1.24) Glucose Level 124mg/dl (70-220) Calcium Level 9.4mg/dl (8.4-10.2) Total Bilirubin 0.1mg/dl (0.2-1.3) Direct Bilirubin 0.00mg/dl (0.00-0.20) Indirect Bilirubin 0.1mg/dl (0-1.1) Aspartate Amino Transf (AST/SGOT) 17IU/L (15-46) Alanine Aminotransferase (ALT/SGPT) 24IU/L (13-69) Alkaline Phosphatase 83IU/L (42-121) Troponin I < 0.012ng/ml (0.00-0.12) B-Type Natriuretic Peptide 74PG/ML (0-125) Total Protein 7.3g/dl (6.1-8.1) Albumin 4.0g/dl (3.3-4.9) Globulin 3.30g/dl (1.3-3.2) Albumin/Globulin Ratio 1.21 ALEX BURCH NP Nov 16, 2016 15:35
[2016-11-16] MEDS ORDERED: ATORVASTATIN 20 MG TAB PO SCH (21:00)
[2016-11-16] MEDS ORDERED: FAMOTIDINE 20 MG TAB PO SCH (21:00)
[2016-11-16] MEDS ORDERED: HEPARIN 5,000 UNIT/0.5 ML VIAL SC SCH (21:00)
[2016-11-16] MEDS ORDERED: MEMANTINE 10 MG TAB PO SCH (21:00)
[2016-11-17] MEDS ORDERED: ASPIRIN (EC) 81 MG TAB PO SCH (09:00)
[2016-11-17] MEDS ORDERED: LISINOPRIL 10 MG TAB PO SCH (09:00)
== END 2016-11-16 04:44 | disposition home or self-care (01) ==
LOC: E/R 00:07
DX: R07.9 Chest pain, unspecified (principal); I10 Essential (primary) hypertension; Z79.82 Long term (current) use of aspirin; Z87.891 Personal history of nicotine dependence
CPT/HCPCS: 36415; 71010; 71260; 74177; 80053; 83880; 84484; 85025; 93005; 99285; Q9967; J2270; J2405

== ENCOUNTER 2017-11-17 12:02 | Emergency (ER) | END 2017-11-17 16:32 | disposition home or self-care (01) ==